=== PATIENT | female | born 1985 | race Caucasian/White ===

== ENCOUNTER 2017-03-30 15:31 | Emergency (ER) | payer OTHER ==
[~2017-03-30 15:31] MED LIST: AMOXICILLIN500 M1 PO; AMOXICILLIN875 MG PO; AUGMENTIN875 MG PO; BACTRIM DS TABL1 TA1 PO; BIAXIN PO; CARAFATE1 G PO; CEFPODOXIME PR200 M1 PO; DICLOFENAC PO; FAMOTIDINE PO; FLEXERIL PO; HYDROCODON-ACE1 EAC7 PO; IBUPROFEN800 MG PO; MOBIC PO; MOTRIN PO; MOTRIN600 MG PO; NAPROSYN500 MG PO; NO MEDICATIONS; PEN-VEE K PO; PEPCID PO; PHENERGAN PO; PHENERGAN25 M1 PO; PRENATAL1 TA1 PO; PRILOSEC20 M1 PO; PROTONIX PO; PYRIDIUM PO; ROBAXIN PO; VOLTAREN50 MG PO
[2017-03-30] MEDS ORDERED: [UNRECOGNIZED DRUG - OTHER] PO (15:40)
[2017-03-30 16:52] LABS: URINE SOURCE CLEAN CATCH
[2017-03-30 16:54] LABS: URINE APPEARANCE CLEAR; URINE BLOOD NEG (NEG); URINE COLOR YELLOW; URINE GLUCOSE NEG (NORM); URINE KETONE TRACE (NEG); URINE LEUKOCYTE ESTERASE 2+ (NEG); URINE NITRATE NEG (NEG); URINE PROTEIN NEG (NEG); URINE SPECIFIC GRAVITY >=1.030 (1.003-1.035)
[2017-03-30 17:04] LABS: MICRO INDICATED? YES; URINE BILIRUBIN NEG (NEG)
[2017-03-30 17:06] LABS: CULTURE INDICATED? YES; URINE BACTERIA 1+ (NEG); URINE MUCUS PRESENT; URINE RBC 0-2 /[HPF] (0-2); URINE SQUAMOUS EPITHELIAL CELL MODERATE /[HPF]; URINE WBC 25-50 /[HPF] (0-5)
== END 2017-03-30 17:31 | disposition home or self-care (01) ==
LOC: SED 15:31
PROVIDERS: Nurse Practitioner Family
DX: J06.9 Acute upper respiratory infection, unspecified (principal); K21.9 Gastro-esophageal reflux disease without esophagitis; F17.210 Nicotine dependence, cigarettes, uncomplicated; Z90.49 Acquired absence of other specified parts of digestive tract; Z88.5 Allergy status to narcotic agent; Z88.8 Allergy status to other drugs, medicaments and biological substances
CPT/HCPCS: 81003; 84703; 87086; 87651; 96372; 99283; J0696